=== PATIENT | female | born 1985 | race Two or more races ===

== ENCOUNTER 2018-09-09 17:08 | Emergency (ER) | payer SELFPAY ==
[~2018-09-09] VITALS: Ht 162.6 cm; Wt 77.1 kg
[2018-09-09 17:46] LABS: BILIRUBIN,URINE NEGATIVE (NEG); CLARITY,URINE CLEAR; COLOR,URINE YELLOW; NITRITE,URINE NEGATIVE (NEG); PH,URINE 6.5; PROTEIN,URINE NEGATIVE (NEG-TRACE); UROBILINOGEN,URINE 0.2 mg/dL (0.2 mg/dL)
[2018-09-09 17:52] LABS: BARBITURATES NEG (NEG); BENZODIAZEPINES NEG (NEG); CANNABINOIDS NEG (NEG); COCAINE NEG (NEG); METHADONE NEG (NEG); OPIATES NEG (NEG); PHENCYCLIDINE NEG (NEG)
[2018-09-09 17:55] LABS: AMPHETAMINE/METHAMPHETAMINE NEG (NEG)
--- NOTE | 2018-09-09 18:02 | PHYS DOC ---
Past Medical History Past Medical History: No Pertinent History (PAUL CONTE APRN) Past Surgical History: No Surgical History (PAUL CONTE APRN) Alcohol Use: Occasionally Drug Use: None (PAUL CONTE APRN) Adult General Chief Complaint Chief Complaint: HEADACHE HPI HPI Patient is a 32 year old female no significant medical history who presents to the ED today complaining of a cramping intermittent 8 out of 10 left-sided head pain that is radiating to her left flank. Patient denies any known injury. She states the headache began 4 days ago after riding from [place]. She states they took a cab ride. Denies any chest pain or shortness of breath. Denies unilateral or bilateral leg pain. She states the pain is worse on range of motion. She states today she felt nauseated, denies vomiting. Denies any fever. Denies any nuchal rigidity. Denies any shortness of breath. (PAUL CONTE APRN) Review of Systems Review of Systems Constitutional: Denies fever or chills [] Eyes: Denies change in visual acuity, redness, or eye pain [] HENT: Denies nasal congestion or sore throat [] Respiratory: Denies cough or shortness of breath [] Cardiovascular: No additional information not addressed in HPI [] GI: Reports nausea. Denies abdominal pain, vomiting, bloody stools or diarrhea [] : Denies dysuria or hematuria [] Musculoskeletal: Reports neck pain radiating to the flank Integument: Denies rash or skin lesions [] Neurologic: Denies headache, focal weakness or sensory changes [] All other systems were reviewed and found to be within normal limits, except as documented in this note. (PAUL CONTE APRN) Current Medications Current Medications Current Medications Medications (Trade) Dose Ordered Sig/Mikael Start Time Stop Time Status Last Admin Dose Admin Diphenhydramine HCl (Benadryl) 25 mg 1X ONCE 09/09/18 18:30 09/09/18 18:31 DC 09/09/18 18:13 25 MG Methylprednisolone Sodium Succinate (SOLU-Medrol 125MG VIAL) 125 mg 1X ONCE 09/09/18 18:30 09/09/18 18:31 DC 09/09/18 18:12 125 MG Prochlorperazine Edisylate (Compazine) 10 mg 1X ONCE 09/09/18 18:30 09/09/18 18:31 DC 09/09/18 18:14 10 MG Sodium Chloride 1,000 ml @ 1,000 mls/hr 1X ONCE 09/09/18 18:30 09/09/18 19:16 DC 09/09/18 18:12 1,000 MLS/HR (BOO ANTUNEZ DO) Allergies Allergies Allergies Coded Allergies Type Severity Reaction Last Updated Verified No Known Drug Allergies 09/09/18 No (BOO ANTUNEZ DO) Physical Exam Physical Exam Constitutional: Well developed, well nourished, no acute distress, non-toxic appearance. [] HENT: Normocephalic, atraumatic, bilateral external ears normal, oropharynx moist, no oral exudates, nose normal. [] Eyes: PERRLA, EOMI, conjunctiva normal, no discharge. [] Neck: Normal range of motion, no tenderness, supple, no stridor. [] Cardiovascular:Heart rate regular rhythm, no murmur [] Lungs & Thorax: Bilateral breath sounds clear to auscultation [] Abdomen: Bowel sounds normal, soft, no tenderness, no masses, no pulsatile rosa isela s. [] Skin: Warm, dry, no erythema, no rash. [] Back: No tenderness, no CVA tenderness. [] Extremities: No tenderness, no cyanosis, no clubbing, ROM intact, no edema. [] Negative Homans sign bilaterally. Neurologic: Alert and oriented X 3, normal motor function, normal sensory function, no focal deficits noted. Cranial nerves II through XII intact Psychologic: Affect normal, judgement normal, mood normal. [] (PAUL CONTE APRN) Current Patient Data Vital Signs Vital Signs Date Time Temp Pulse Resp B/P (MAP) Pulse Ox O2 Delivery O2 Flow Rate FiO2 09/09/18 18:47 72 97 09/09/18 17:10 98.3 16 149/90 (109) Room Air 98.3 (BOO ANTUNEZ DO) Lab Values Laboratory Tests Test 09/09/18 17:00 09/09/18 17:23 09/09/18 18:08 Urine Collection Type Unknown Urine Color Yellow Urine Clarity Clear Urine pH 6.5 Urine Specific Dubberly 1.015 Urine Protein Negative mg/dL (NEG-TRACE) Urine Glucose (UA) Negative mg/dL (NEG) Urine Ketones (Stick) Negative mg/dL (NEG) Urine Blood Negative (NEG) Urine Nitrite Negative (NEG) Urine Bilirubin Negative (NEG) Urine Urobilinogen Dipstick 0.2 mg/dL (0.2 mg/dL) Urine Leukocyte Esterase Negative (NEG) Urine RBC Occ /HPF (0-2) Urine WBC 0 /HPF (0-4) Urine Squamous Epithelial Cells Few /LPF Urine Bacteria 0 /HPF (0-FEW) Urine Opiates Screen Neg (NEG) Urine Methadone Screen Neg (NEG) Urine Barbiturates Neg (NEG) Urine Phencyclidine Screen Neg (NEG) Urine Amphetamine/Methamphetamine Neg (NEG) Urine Benzodiazepines Screen Neg (NEG) Urine Cocaine Screen Neg (NEG) Urine Cannabinoids Screen Neg (NEG) Urine Ethyl Alcohol Neg (NEG) POC Urine HCG, Qualitative Hcg negative (Negative) White Blood Count 8.7 x10^3/uL (4.0-11.0) Red Blood Count 4.32 x10^6/uL (3.50-5.40) Hemoglobin 12.5 g/dL (12.0-15.5) Hematocrit 36.8 % (36.0-47.0) Mean Corpuscular Volume 85 fL (79-100) Mean Corpuscular Hemoglobin 29 pg (25-35) Mean Corpuscular Hemoglobin Concent 34 g/dL (31-37) Red Cell Distribution Width 16.4 % (11.5-14.5) H Platelet Count 222 x10^3/uL (140-400) Neutrophils (%) (Auto) 71 % (31-73) Lymphocytes (%) (Auto) 23 % (24-48) L Monocytes (%) (Auto) 5 % (0-9) Eosinophils (%) (Auto) 1 % (0-3) Basophils (%) (Auto) 1 % (0-3) Neutrophils # (Auto) 6.1 x10^3uL (1.8-7.7) Lymphocytes # (Auto) 2.0 x10^3/uL (1.0-4.8) Monocytes # (Auto) 0.5 x10^3/uL (0.0-1.1) Eosinophils # (Auto) 0.1 x10^3/uL (0.0-0.7) Basophils # (Auto) 0.0 x10^3/uL (0.0-0.2) Sodium Level 140 mmol/L (136-145) Potassium Level 3.6 mmol/L (3.5-5.1) Chloride Level 104 mmol/L (98-107) Carbon Dioxide Level 23 mmol/L (21-32) Anion Gap 13 (6-14) Blood Urea Nitrogen 15 mg/dL (7-20) Creatinine 0.6 mg/dL (0.6-1.0) Estimated GFR (Cockcroft-Gault) 114.4 BUN/Creatinine Ratio 25 (6-20) H Glucose Level 101 mg/dL (70-99) H Calcium Level 9.0 mg/dL (8.5-10.1) Total Bilirubin 0.2 mg/dL (0.2-1.0) Aspartate Amino Transferase (AST) 20 U/L (15-37) Alanine Aminotransferase (ALT) 26 U/L (14-59) Alkaline Phosphatase 47 U/L (46-116) Total Protein 6.8 g/dL (6.4-8.2) Albumin 3.5 g/dL (3.4-5.0) Albumin/Globulin Ratio 1.1 (1.0-1.7) Lipase 142 U/L (73-393) Ethyl Alcohol Level < 10 mg/dL (0-10) Laboratory Tests 09/09/18 18:08 Laboratory Tests 09/09/18 18:08 (BOO ANTUNEZ DO) EKG EKG [] (PAUL CONTE APRN) Radiology/Procedures Radiology/Procedures []PROCEDURE: CT HEAD AND CERVICAL SPINE WO CT head without contrast. CT cervical spine without contrast. PQRS statement: CT scans at this facility use dose reduction including either automated exposure control, iterative reconstructions, and /or weight based radiation dosing via mA and kV modification when appropriate to reduce radiation dose to as low as reasonably achievable. HISTORY: Headache, left scalp, neck and shoulder pain. TECHNIQUE: Noncontrast CT imaging of the head and cervical spine multiplanar reconstructions. CT head findings: No intracranial hemorrhage, mass, hydrocephalus, extra-axial fluid collections or infarction. Imaged orbits, mastoids, paranasal sinuses and bones are unremarkable. IMPRESSION: No acute intracranial CT abnormality. CT cervical spine findings: Craniocervical junction intact. Cervical vertebral body height and alignment intact. No fracture of the cervical spine. No lytic or sclerotic bone lesion. Bulky left anterior ridging disc osteophyte at C5-C6 does not encroach the neural foramen. The lung apices and the paraspinal tissues are unremarkable. IMPRESSION: No acute osseous injury of the cervical spine. Electronically signed by: Pablo Alvarez MD (09/09/2018 5:59 PM) [facility] DICTATED and SIGNED BY: PABLO ALVAREZ MD DATE: 09/09/181758 (PAUL CONTE APRN) Course & Med Decision Making Course & Med Decision Making Pertinent Labs and Imaging studies reviewed. (See chart for details) This is a 32-year-old female patient presented to the ED today with complaints of head pain radiating to her left flank region. Pain began 4 days ago after arriving from [place] via car. Patient has no LE pain. Has no chest pain or shortness of breath. Pain appears more musculoskeletal especially to the neck and flank. UA is negative. CT of the head and cervical spine are negative for any acute findings. Patient was discharged to home. Follow-up with PCP in 1-2 weeks. (PAUL CONTE APRN) Dragon Disclaimer Dragon Disclaimer This electronic medical record was generated, in whole or in part, using a voice recognition dictation system. (PAUL CONTE APRN) Departure Departure Impression: Primary Impression: Headache Additional Impressions: Acute cervical sprain Acute flank pain Disposition: 01 HOME, SELF-CARE Condition: STABLE Referrals: MARCELINA WALDRON MD (PCP) follow up in 1 week Patient Instructions: Cervical Sprain, Flank Pain, [id number], Headache, FAQs Additional Instructions: You were evaluated in the emergency room for pain. Take the prescribed medications as ordered. Try to apply ice to the affected areas. Follow-up with your doctor in 1-[address] of the head and cervical spine were negative for any acute findings. Scripts Methylprednisolone (MEDROL) 4 Mg Tab.ds.pk 1 PKG PO UD, #1 PKG Prov: PAUL CONTE APRN 09/09/18 Diclofenac Sodium (DICLOFENAC SODIUM) 50 Mg Tablet.dr 1 TAB PO BID, #20 TAB 0 Refills Prov: PAUL CONTE APRN 09/09/18 Cyclobenzaprine Hcl (CYCLOBENZAPRINE HCL) 10 Mg Tablet 1 TAB PO TID, #30 TAB Prov: PAUL CONTE MANAGER MARKET 09/09/18 Attending Signature Attending Signature I have reviewed the PA/EDUCATION ASSOCIATE's note and plan of care. I was available for consultation as needed during the patient's visit in the emergency department. I agree with the clinical impression, plan, and disposition. (BOO ANTUNEZ DO) Problem Qualifiers Primary Impression: Headache Headache type: unspecified Headache chronicity pattern: unspecified pattern Intractability: not intractable Qualified Codes: R51 - Headache Additional Impressions: Acute cervical sprain Encounter type: initial encounter Qualified Codes: S13.9XXA - Sprain of joints and ligaments of unspecified parts of neck, initial encounter PAUL CONTE MANAGER MARKET Sep 09, 2018 18:02 BOO ANTUNEZ DO Sep 13, 2018 15:33
[2018-09-09 18:17] LABS: BACTERIA,URINE 0 /HPF (0-FEW); RBC,URINE OCC /HPF (0-2); SQUAMOUS EPITHELIAL CELL,UR FEW /LPF; WBC,URINE 0 /HPF (0-4)
[2018-09-09] MEDS ORDERED: PROCHLORPERAZINE 10 MG/2 ML VIAL. IV ONE (18:30)
[2018-09-09] MEDS ORDERED: methylPREDNISolone SOD SUCC PF 125 MG/2 ML VIAL. IV ONE (18:30)
[2018-09-09] MEDS ORDERED: diphenhydrAMINE HCL 25 MG CAPSULE PO ONE (18:30)
[2018-09-09] MEDS ORDERED: IV NORMAL SALINE 1000ML BAG 1,000 ML IV ONE (18:30)
[2018-09-09 18:47] VITALS: BP 115/70
[2018-09-09] MEDS ORDERED: CYCL10TA2 PO (18:57)
[2018-09-09] MEDS ORDERED: METH4TAB2 PO (18:57)
[2018-09-09] MEDS ORDERED: DICL50TA4 PO (18:57)
[2018-09-09 19:06] LABS: BASO % 1 % (0-3); EOS # 0.1 x10^3/uL (0.0-0.7); EOS % 1 % (0-3); HEMATOCRIT 36.8 % (36.0-47.0); HEMOGLOBIN 12.5 g/dL (12.0-15.5); LYMPH % 23 % (24-48); MEAN CORPUSCULAR HEMOGLOBIN 29 pg (25-35); MEAN CORPUSCULAR HGB CONC 34 g/dL (31-37); MEAN CORPUSCULAR VOLUME 85 fL (79-100); MONO # 0.5 x10^3/uL (0.0-1.1); MONO % 5 % (0-9); NEUT # 6.1 x10^3uL (1.8-7.7); NEUT % 71 % (31-73); PLATELET COUNT 222 x10^3/uL (140-400); RED BLOOD COUNT 4.32 x10^6/uL (3.50-5.40); RED CELL DISTRIBUTION WIDTH 16.4 % (11.5-14.5); WHITE BLOOD COUNT 8.7 x10^3/uL (4.0-11.0)
[2018-09-09 19:15] LABS: CREATININE 0.6 mg/dL (0.6-1.0); GFR 114.4; POTASSIUM 3.6 mmol/L (3.5-5.1)
[2018-09-09 19:21] LABS: ALBUMIN 3.5 g/dL (3.4-5.0); ALBUMIN/GLOBULIN RATIO 1.1 (1.0-1.7); TOTAL BILIRUBIN 0.2 mg/dL (0.2-1.0); TOTAL PROTEIN 6.8 g/dL (6.4-8.2)
== END 2018-09-09 19:14 | disposition home or self-care (01) ==
LOC: ER 17:08
DX: R51 Headache (principal); S13.8XXA Sprain of joints and ligaments of other parts of neck, initial encounter; R10.9 Unspecified abdominal pain; R11.0 Nausea; X50.9XXA Other and unspecified overexertion or strenuous movements or postures, initial encounter; Y93.89 Activity, other specified; Y92.89 Other specified places as the place of occurrence of the external cause; Y99.8 Other external cause status
CPT/HCPCS: 36415; 70450; 72125; 80053; 80307; 81001; 81025; 83690; 85025; 96374; 96375; 99285; G0480; J0780; J2930; J7030; Q0163

== ENCOUNTER → 2019-11-04 | Outpatient (CLI) | payer SELFPAY ==
[~2019-11-04] MED LIST: CYCL10TA2 PO; DICL50TA4 PO; METH4TAB2 PO
--- NOTE | 2019-11-04 13:53 | RAD ---
EXAM: Pelvic ultrasound HISTORY: Left ovarian cyst. COMPARISON: None. FINDINGS: Sonographic evaluation of the pelvis was performed transabdominally. The uterus is anteverted and measures 10.7 x 6.2 x 4.8 cm. The endometrial stripe measures 6 mm. No masses are identified. There is no significant free fluid. The right ovary measures 3.8 x 4.2 x 4.0 cm. A dominant right ovarian follicle or small cyst measures 3.1 x 2.3 cm. The left ovary measures 4.4 x 4.2 x 4.2 cm. A dominant left ovarian follicle or small cyst measures 3.4 x 3.1 cm. There is normal Doppler flow bilaterally. There are no suspicious lesions. IMPRESSION: 1. Bilateral small ovarian cysts or dominant follicles measure 3.4 cm on the left and 3.1 cm on the right. These are likely benign in this demographic. Follow-up to demonstrate resolution in 3 months if there is persistent concern. Electronically signed by: Mary Guzman MD (11/04/2019 1:50 PM) [id number]
== END | disposition home or self-care (01) ==
LOC: US 10:51
PROVIDERS: ATTEND Family Medicine
DX: N83.202 Unspecified ovarian cyst, left side (principal); N83.201 Unspecified ovarian cyst, right side
CPT/HCPCS: 76856